=== PATIENT | male | born 1955 | race Two or more races ===

== ENCOUNTER 2016-04-07 08:37 | Emergency (ER) | payer OTHER ==
[2016-04-07 09:08] VITALS: BP 140/95; PULSE 75; RESP 18; TEMP 98.8; O2SAT 95
--- NOTE | 2016-04-07 09:23 | UCPHY ---
H & P Time Seen by Provider: 04/07/16 09:14 Patient Type: New HPI/ROS: This patient has a sore throat. Started a week ago. He was seen in outlying clinic a few days ago with a negative rapid strep but has worsening symptoms despite passage of time. He believes there is a strep culture pending I have not received a call about that yet. He reports that the pain is moderate to severe and worse with swallowing. He has been taking some Percocet he had left over from a prior procedure with only partial relief. ROS: No high fevers. No nasal congestion. He does have mild ear pressure bilaterally associated with this. 5 point ROS is otherwise negative. Past Medical/Surgical History: Otherwise healthy Smoking Status: Former smoker Physical Exam: Physical Exam Vital signs are normal. General: No acute distress HEENT: Nose: Clear oropharynx: Patient has erythematous ulcerative appearing plaques in the left more than right posterior pharynx. He is status post DNA no dysphonia or stridor. Ears: External canal clear bilaterally he has clear effusions bilaterally. Nose: Clear Eyes: Pupils equal and react to light. Extraocular motions are intact. Lungs: No respiratory distress. Cardiac: Brisk capillary refill is intact throughout. Skin: No rash or pallor. Neuro: Alert with no overt sensorimotor deficits. Initial differential diagnosis: Viral pharyngitis versus strep pharyngitis Constitutional: Initial Vital Signs Temperature (C) 37.1 C 04/07/16 09:05 Heart Rate 75 04/07/16 09:05 Respiratory Rate 18 04/07/16 09:05 Blood Pressure 140/95 H 04/07/16 09:05 O2 Sat (%) 95 04/07/16 09:05 O2 Delivery Mode Room Air Allergies/Adverse Reactions: No Known Allergies Allergy (Unverified 04/07/16 09:04) Home Medications: Medication Instructions Recorded Atorvastatin Calcium 04/07/16 Medical Decision Making ED Course/Re-evaluation: Rapid strep is negative. I counseled patient regarding viral pharyngitis - Data Points Laboratory Results: 04/07/16 04/07/16 Unknown 09:10 Group A Strep Screen NEGATIVE (NEGATIVE) Group A Strep DNA Pending Departure - Departure Clinical Impression: Viral pharyngitis Instructions: Pharyngitis (ED) Additional Instructions: Diagnosis: Viral pharyngitis Your rapid strep is negative today. Plan: Magic mouthwash " -rinse gargle spit as needed for pain. Ibuprofen and other analgesics as needed. Her symptoms should improve over the next 2-5 days. [place]errals: [place],. [Primary Care Provider] - As per Instructions - PQRS PQRS Measurement: NA
== END 2016-04-07 09:34 | disposition home or self-care (01) ==
LOC: CED 08:37
DX: J02.8 Acute pharyngitis due to other specified organisms (principal)
CPT/HCPCS: 87880-PO; 99203-PO; G0463-PO